=== PATIENT | male | born 1960 | race African-American/Black ===

== ENCOUNTER 2019-05-25 14:53 | Emergency (ER) | payer MEDICAID ==
[2019-05-25] MEDS ORDERED: SODIUM CHLORIDE 0.9% 1,000 ML IV ONE (15:15)
== END 2019-05-25 15:22 | disposition left against medical advice (07) ==
LOC: ER 14:53
DX: R06.02 Shortness of breath (principal); Z53.21 Procedure and treatment not carried out due to patient leaving prior to being seen by health care provider

== ENCOUNTER 2019-05-26 10:12 | Emergency (ER) | payer MEDICAID ==
[~2019-05-26] VITALS: Ht 167.6 cm; Wt 90.7 kg
[2019-05-26] MEDS ORDERED: cloNIDine HCL 0.1 MG TAB PO ONE (10:45)
[2019-05-26 10:54] LABS: Basophils # (auto) 0 uL; Basophils % (auto) 0.7 % (0.0-2.0); Eosinophils # (auto) 0.3 uL; Hemoglobin 12.7 g/dL (13.5-17.5); Lymphocytes # (auto) 1.3 uL; Mean Corpuscular Volume 79.8 fL (80.0-100.0); Monocytes # (auto) 0.7 uL
[2019-05-26 10:57] LABS: Eosinophils % (auto) 6.2 % (0.0-7.0); Hematocrit 38.6 % (41.0-53.0); Lymphocytes % (auto) 25.7 % (10.0-50.0); Mean Corpuscular Hemoglobin 26.3 pg (28.0-32.0); Monocytes % (auto) 13.2 % (0.0-12.0); Neutrophils # (auto) 2.7 uL; Neutrophils % (auto) 54.2 % (37.0-80.0); Platelet Count (auto) 264 10^3/uL (140-450); Red Blood Cells 4.84 10^6/uL (4.5-5.90); Red Cell Distribution Width 17.3 % (11.8-14.3)
[2019-05-26 11:04] LABS: Alanine Aminotransferase 192 U/L (16-61); Albumin 3.8 g/dL (3.4-5.0); Anion Gap 6 (5-15); Aspartate Aminotransferase 170 U/L (15-37); BUN/Creatinine Ratio 9.4; Blood Urea Nitrogen 12 mg/dL (7-18); Calcium 8.8 mg/dL (8.5-10.1); Carbon Dioxide 27 mmol/L (21-32); Chloride 103 mmol/L (98-107); GFR African American 74 mL/min; GFR Non-African American 62 mL/min; Glucose 217 mg/dL (74-106); Potassium 3.5 mmol/L (3.5-5.1); Sodium 136 mmol/L (136-145)
[2019-05-26 11:17] LABS: Alkaline Phosphatase 100 U/L (45-117); Bilirubin, Total 0.4 mg/dL (0.2-1.0); Total Protein 7.8 g/dL (6.4-8.2)
[2019-05-26] MEDS ORDERED: IOHEXOL 350 MG/ML 100ML IJ ONE (11:33)
[2019-05-26] MEDS ORDERED: LABETALOL HCL 5 MG/ML ML 20ML VIAL IV ONE (14:45)
[2019-05-26] MEDS ORDERED: amLODIPine BESYLATE 5 MG TAB PO ONE (15:30)
[2019-05-26] MEDS ORDERED: hydrALAZINE HCL 20 MG/ML VL IV ONE (16:30)
[2019-05-26 17:00] VITALS: BP 149/66
== END 2019-05-26 17:48 | disposition home or self-care (01) ==
LOC: ER 10:12
DX: I10 Essential (primary) hypertension (principal); R73.9 Hyperglycemia, unspecified; J44.9 Chronic obstructive pulmonary disease, unspecified; M54.2 Cervicalgia; Z98.61 Coronary angioplasty status
CPT/HCPCS: 36415; 70491; 71045; 71275; 80053; 83880; 84484; 85025; 93005; 94761; 96374; 96375; 99284; J0360; Q9967

== ENCOUNTER 2020-07-13 17:44 | Inpatient (IN) | payer MEDICAID ==
[~2020-07-13] VITALS: Ht 170.2 cm; Wt 84.5 kg
[2020-07-13] MEDS ORDERED: ACETAMINOPHEN 325 MG TAB PO ONE ×2 (18:07→18:15)
[2020-07-13 18:50] LABS: Hematocrit 42.1 % (41.0-53.0); Hemoglobin 13.9 g/dL (13.5-17.5); Mean Corpuscular Hemoglobin 27.3 pg (28.0-32.0); Mean Corpuscular Hgb Conc. 32.9 g/dL (32.0-36.0); Mean Corpuscular Volume 82.8 fL (80.0-100.0); Platelet Count (auto) 174 10^3/uL (140-450); Red Blood Cells 5.08 10^6/uL (4.5-5.90); Red Cell Distribution Width 12.7 % (11.8-14.3); White Blood Cell 3.3 10^3/uL (4.4-10.8)
[2020-07-13 19:06] LABS: Band Neutrophils % (manual) 0; Basophils % (manual) 0 (0.0-2.0); Blast Cells 0; Metamyelocytes % 0; Myelocytes % 0; Promyelocytes % 0; Reactive Lymphocytes 0
[2020-07-13 19:09] LABS: Albumin 3.1 g/dL (3.4-5.0); BUN/Creatinine Ratio 8.5; Calcium 8.3 mg/dL (8.5-10.1); Potassium 3.6 mmol/L (3.5-5.1)
[2020-07-13 19:14] LABS: Bilirubin, Total 0.3 mg/dL (0.2-1.0); Total Protein 7.5 g/dL (6.4-8.2)
[2020-07-13 19:19] LABS: INR 1.06 (0.9-1.15); Partial Thromboplastin Time 26.1 sec (23.0-31.2)
[2020-07-13] MEDS ORDERED: levoFLOXacin 750MG 150 ML IV ONE (19:45)
[2020-07-13 20:02] LABS: Eosinophils % (manual) 1 (0-7); Lymphocytes % (manual) 21 (10.0-50.0); Monocytes % (manual) 10 (0-12)
[2020-07-13] MEDS ORDERED: ONDANSETRON HCL 4 MG/2 ML VIAL IV ONE (20:45)
[2020-07-13] MEDS ORDERED: NITROGLYCERIN 0.4 MG SL TAB SL PRN (22:45)
[2020-07-13] MEDS ORDERED: MORPHINE SULF INJ 2 MG/ML SYRINGE 1ML IV PRN (22:45)
[2020-07-13] MEDS ORDERED: ONDANSETRON HCL 4 MG/2 ML VIAL IV PRN (22:45)
[2020-07-13] MEDS ORDERED: ALBUTEROL SULF 2.5 MG/0.5ML(0.5%) NEB SOLN NEB PRN (22:45)
[2020-07-13] MEDS ORDERED: ATOR1TAB PO (23:01)
[2020-07-13] MEDS ORDERED: LOS25T PO (23:01)
[2020-07-13] MEDS ORDERED: AMLO10TA13 PO (23:01)
[2020-07-14] VITALS (7 sets, daily range): BP systolic 112–139; BP diastolic 66–85
[2020-07-14] MEDS ORDERED: ACETAMINOPHEN 325 MG TAB PO PRN (00:45)
[2020-07-14] MEDS ORDERED: IOHEXOL 350 MG/ML 100ML IJ ONE (04:14)
[2020-07-14] MEDS ORDERED: CHOLECALCIFEROL (VITD3) 2,000 UNIT CAP PO SCH (10:00)
[2020-07-14] MEDS ORDERED: ZINC SULFATE 220mg CAP or TAB PO SCH (10:00)
[2020-07-14] MEDS ORDERED: amLODIPine BESYLATE 5 MG TAB PO SCH (10:00)
[2020-07-14] MEDS ORDERED: ENOXAPARIN SOD 40 MG/0.4 ML SYRINGE SC SCH (10:00)
[2020-07-14] MEDS ORDERED: AZITHROMYCIN 500MG/ 250ML 250 ML IV SCH (10:00)
[2020-07-14] MEDS ORDERED: ASCORBIC ACID 500 MG TAB PO SCH (10:00)
[2020-07-14] MEDS ORDERED: ATORVASTATIN 20 MG TAB PO SCH ×2 (10:00→22:00)
[2020-07-14] MEDS ORDERED: LOSARTAN POTASSIUM 25 MG TAB PO SCH (10:00)
[2020-07-14] MEDS: cefTRIAXone 1GM/50ML D5W 50 ML IV SCH (10:21)
[2020-07-14] MEDS ORDERED: ALBUAER3 IN (12:28)
[2020-07-14] MEDS ORDERED: LEVO500T21 PO (12:28)
[2020-07-15] MEDS: cefTRIAXone 1GM/50ML D5W 50 ML IV SCH (08:24)
[2020-07-15 08:48] VITALS: BP 125/69
== END 2020-07-15 09:49 | disposition home or self-care (01) | DRG 140 ==
LOC: ER 17:44 → EDBD 17:44 → TELE 17:45 → TELE-EAST 07-14 04:39 → TELE-CENTR 07-14 16:13
PROVIDERS: ADMIT Hospitalist; ATTEND Hospitalist
DX: J44.0 Chronic obstructive pulmonary disease with (acute) lower respiratory infection (principal); J44.1 Chronic obstructive pulmonary disease with (acute) exacerbation; J18.9 Pneumonia, unspecified organism; E66.9 Obesity, unspecified; F12.90 Cannabis use, unspecified, uncomplicated; I10 Essential (primary) hypertension; I25.10 Atherosclerotic heart disease of native coronary artery without angina pectoris; R21 Rash and other nonspecific skin eruption; Z20.828 Contact with and (suspected) exposure to other viral communicable diseases; E78.5 Hyperlipidemia, unspecified; F17.200 Nicotine dependence, unspecified, uncomplicated; Z95.1 Presence of aortocoronary bypass graft; Z95.5 Presence of coronary angioplasty implant and graft; Z71.6 Tobacco abuse counseling; Z79.899 Other long term (current) drug therapy; Z68.31 Body mass index [BMI] 31.0-31.9, adult
CPT/HCPCS: 36415; 71045; 71275; 80053; 83036; 83605; 83880; 84484; 85007; 85027; 85379; 85610; 85730; 87040; 87086; 87426; 93005; G0378; J0696; J1956

== ENCOUNTER 2020-08-03 20:55 | Inpatient (IN) | payer MEDICAID ==
[~2020-08-03] VITALS: Ht 167.6 cm; Wt 89.3 kg
[~2020-08-03 20:55] MED LIST: ALBUAER3 IN; AMLO10TA13 PO; ATOR1TAB PO; LEVO500T21 PO; LOS25T PO
[2020-08-03 23:27] LABS: Opiate Scree,Urine NEGATIVE (NEGATIVE)
[2020-08-03 23:28] LABS: Amphetamine Screen, Urine POSITIVE (NEGATIVE); Barbiturate Scree,Urine NEGATIVE (NEGATIVE); Phencyclidine Screen, Urine NEGATIVE (NEGATIVE)
[2020-08-03 23:29] LABS: Benzodiazephine Screen, Urine NEGATIVE (NEGATIVE); Cannabinoid Screen, Urine POSITIVE (NEGATIVE); Cocaine Screen, Urine NEGATIVE (NEGATIVE)
[2020-08-03 23:44] LABS: Basophils # (auto) 0 10 ^3/uL (0-0.2); Basophils % (auto) 0.5 % (0.0-2.0); Eosinophils # (auto) 0.2 10 ^3/uL (0-0.8); Eosinophils % (auto) 3.7 % (0.0-7.0); Hematocrit 44.5 % (41.0-53.0); Hemoglobin 14.4 g/dL (13.5-17.5); Lymphocytes # (auto) 1.5 10 ^3/uL (0.4-5.4); Lymphocytes % (auto) 26.6 % (10.0-50.0); Mean Corpuscular Hemoglobin 26.6 pg (28.0-32.0); Mean Corpuscular Hgb Conc. 32.3 g/dL (32.0-36.0); Mean Corpuscular Volume 82.3 fL (80.0-100.0); Monocytes # (auto) 0.7 10 ^3/uL (0-1.3); Monocytes % (auto) 12.5 % (0.0-12.0); Neutrophils # (auto) 3.2 10 ^3/uL (1.6-8.6); Neutrophils % (auto) 56.7 % (37.0-80.0); Nucleated Red Blood Cells % 0.1 %; Platelet Count (auto) 237 10^3/uL (140-450); Red Blood Cells 5.41 10^6/uL (4.5-5.90); Red Cell Distribution Width 13.5 % (11.8-14.3); White Blood Cell 5.6 10^3/uL (4.4-10.8)
[2020-08-03 23:59] LABS: INR 1.08 (0.9-1.15); Partial Thromboplastin Time 26.6 sec (23.0-31.2)
[2020-08-04 00:48] LABS: Anion Gap 7 (5-15); BUN/Creatinine Ratio 14.3; Blood Urea Nitrogen 19 mg/dL (7-18); Carbon Dioxide 27 mmol/L (21-32); Chloride 102 mmol/L (98-107); GFR African American 71 mL/min; GFR Non-African American 59 mL/min; Glucose 118 mg/dL (74-106); Potassium 3.2 mmol/L (3.5-5.1); Sodium 136 mmol/L (136-145)
[2020-08-04 00:49] LABS: Alanine Aminotransferase 93 U/L (16-61); Albumin 4.3 g/dL (3.4-5.0); Alkaline Phosphatase 81 U/L (45-117); Aspartate Aminotransferase 81 U/L (15-37); Bilirubin, Total 0.8 mg/dL (0.2-1.0); Calcium 9.9 mg/dL (8.5-10.1); Total Protein 8.9 g/dL (6.4-8.2)
[2020-08-04] MEDS ORDERED: POTASSIUM CHL 20 Meq TABLET PO ONE (01:15)
[2020-08-04] MEDS ORDERED: NITROGLYCERIN 0.4 MG SL TAB SL PRN (02:45)
[2020-08-04] MEDS ORDERED: ACETAMINOPHEN 325 MG TAB PO PRN (02:45)
[2020-08-04] MEDS ORDERED: ONDANSETRON HCL 4 MG/2 ML VIAL IV PRN (02:45)
[2020-08-04] MEDS ORDERED: MORPHINE SULF INJ 2 MG/ML SYRINGE 1ML IV PRN (02:45)
[2020-08-04 05:58] LABS: Basophils # (auto) 0 10 ^3/uL (0-0.2); Basophils % (auto) 0.5 % (0.0-2.0); Eosinophils # (auto) 0.2 10 ^3/uL (0-0.8); Eosinophils % (auto) 5.5 % (0.0-7.0); Hematocrit 44.6 % (41.0-53.0); Hemoglobin 14.5 g/dL (13.5-17.5); Lymphocytes # (auto) 1.1 10 ^3/uL (0.4-5.4); Lymphocytes % (auto) 25.4 % (10.0-50.0); Mean Corpuscular Hemoglobin 27.1 pg (28.0-32.0); Mean Corpuscular Hgb Conc. 32.5 g/dL (32.0-36.0); Mean Corpuscular Volume 83.5 fL (80.0-100.0); Monocytes # (auto) 0.6 10 ^3/uL (0-1.3); Monocytes % (auto) 14.2 % (0.0-12.0); Neutrophils # (auto) 2.4 10 ^3/uL (1.6-8.6); Neutrophils % (auto) 54.4 % (37.0-80.0); Nucleated Red Blood Cells % 0.1 %; Platelet Count (auto) 224 10^3/uL (140-450); Red Blood Cells 5.34 10^6/uL (4.5-5.90); Red Cell Distribution Width 13.6 % (11.8-14.3); White Blood Cell 4.5 10^3/uL (4.4-10.8)
[2020-08-04 06:33] LABS: Bilirubin, Total 0.8 mg/dL (0.2-1.0); Calcium 9.7 mg/dL (8.5-10.1); Magnesium 2.5 mg/dL (1.6-2.6); Phosphorus 3.6 mg/dL (2.5-4.90); Potassium 3.4 mmol/L (3.5-5.1); Total Protein 8.4 g/dL (6.4-8.2)
[2020-08-04 06:38] LABS: Cholesterol 138 mg/dL (< 200); LDL Cholesterol 73 mg/dL (< 100); Triglycerides 136 mg/dL (< 150)
[2020-08-04 06:42] LABS: HDL Cholesterol 39 mg/dL (40-59)
[2020-08-04] MEDS ORDERED: SODIUM CHLORIDE 0.9% 1,000 ML IV ONE (09:15)
[2020-08-04] MEDS: ATORVASTATIN 20 MG TAB PO SCH (09:47)
[2020-08-04] MEDS: ASPirin 81 mg TAB PO SCH (09:47)
[2020-08-04] MEDS ORDERED: ENOXAPARIN SOD 100 MG/1 ML SYRINGE SC SCH (10:00)
[2020-08-04] MEDS ORDERED: ASPI-231 PO (14:20)
[2020-08-04 14:30] LABS: BUN/Creatinine Ratio 15.4; Calcium 9.4 mg/dL (8.5-10.1); Potassium 3.9 mmol/L (3.5-5.1)
--- NOTE | 2020-08-04 16:42 | NUR ---
Telemetry admit from ER KATHIA CHATMAN Merlin admitted to Telemetry unit after SBAR received. Patient oriented to Piper Moise, primary RN, unit, room, bed, and unit policies regarding patient care and visiting hours. Patient now on continuous telemetry monitoring, tele box # [id number] and telemetry reading on arrival to unit is . Weighed by bedscale and encouraged to call if they need something. All questions and concerns addressed, patient verbalized understanding. Note:
--- NOTE | 2020-08-04 17:24 | NUR ---
THIS RN NOTIFIED THE PRIMARY RN, CLAIRE, THAT THE PATIENT NEEDS A MRSA NARES AND COVID-19 TEST PER PROTOCOL. RNCLAIRE AWARE AND VERBALIZED UNDERSTANDING.
--- NOTE | 2020-08-04 19:09 | NUR ---
ENDORSED MRSA SWAB AND COVID TO MAXILLOFACIAL PROSTHETICS DENTIST NEVER RECEIVED PATIENT STICKERS.
--- NOTE | 2020-08-05 07:30 | NUR ---
Opening Shift Note Assumed care of patient, resting comfortably. No S/S of distress/SOB or pain. Instructed on POC and to call for assist PRN, will continue to monitor for changes Q1hr and PRN. Bed in low and locked position, rails up x2, no-slip socks on.
[2020-08-05 09:00] VITALS: BP 134/82
[2020-08-05] MEDS: ATORVASTATIN 20 MG TAB PO SCH (09:40)
[2020-08-05] MEDS: ASPirin 81 mg TAB PO SCH (09:40)
--- NOTE | 2020-08-05 11:05 | NUR ---
CALL FROM DR Storm GEORGES TO OBTAIN CARDIAC CLEARANCE FROM DR RAMIREZ AND [facility] FOR HOMELESSNESS, UPDATED ON PATIENT CONDITION.
--- NOTE | 2020-08-05 11:28 | NUR ---
CALL BACK FROM [facility], SS OFFERED PATIENT [facility] IN [place] AND HE REFUSED, STATED THAT HE HAS MONEY BUT THAT THE PLACE WE ARE OFFERING "IS NOT HIS TYPE OF LIVING", THAT HE IS "NOT ON PROBATION" AND "DOESNT WANT TO BE TREATED" LIKE HE IS. hE ALSO STATED HE IS HOPING TO FIND HIS OWN APARTMENT AND PAY HIS OWN WAY. PER [facility], OFFERED PATIENT [facility] IN [place] PH:[phone]. WHILE IN ROOM PATIENT CALLED AND SPOKE TO BUSINESS SERVICES INTERN AT LOCATION AND LATER HE DENIED THEIR SERVICES WELL. CALL BACK TO [facility], WE ARE ABLE TO OFFER TAXI VOUCHER IF PATIENT HAS ANY FAMILY OR FRIENDS IN THE AREA, HE IS STILL MAKING PHONE CALLS WHEN LEAVING THE ROOM.
--- NOTE | 2020-08-05 11:55 | NUR ---
DR Storm GEORGES AT BEDSIDE ABLE TO SPEAK TO PATIENT ABOUT HIS CONDITION, RESULTS OF TESTS AND THAT HE NEEDS TO CONTINUE TO FOLLOW UP WITH HIS PROVIDER FOR HIS ANGINA. CLEARED FOR DISCHARGE PER DR RAMIREZ AFTER CALL BACK. PATIENT EATING LUNCH, AWAITING A TAXI VOUCHER.
[2020-08-05 12:38] VITALS: BP 135/80
[2020-08-05 13:00] VITALS: BP 135/80
--- NOTE | 2020-08-05 13:10 | NUR ---
REFUSED HOMELESSNESS RESOURCES PATIENT CONTINUE TO REFUSE HOMELESS SERVICES [facility]. CALL TO DIETARY TO MAKE PATIENT A TO GO MEAL BAG AND TAXI CALLED FOR TRANSPORTATION TO PATIENTS LOCATION OF CHOICE IN [place].
--- NOTE | 2020-08-05 13:40 | NUR ---
DISCHARGED Discharge instructions given as ordered. Encourage to follow up with PMD as instructed. All questions and concerns addressed. Patient verbalized understanding. Medication reconciliation form completed and copy given to patient. IV removed with catheter intact, pressure dressing applied. Telemetry unit returned to ICU. Patient taken to vehicle via wheelchair with all personal belongings to taxi, accompanied by staff. No distress noted at time of departure.
--- NOTE | 2020-08-06 12:00 | NUR ---
primary montessori teacher 08/05/2020 While primary montessori teacher I received a page from Liset MELCHOR stating patient is homeless. I have offered patient the [facility] homeless half-way and a sober living in [place]. Patient has refused all resources and will find his own placement. Addendum: 08/06/20 at 1204 by Svitlana MAN Amended: Links added.
== END 2020-08-05 13:40 | disposition home or self-care (01) | DRG 198 ==
LOC: ER 20:55 → EDBD 20:55 → EDUNIT# 20:55 → TELE 20:56 → TELE-WESTW 08-04 16:42
PROVIDERS: ADMIT Internal Medicine; ATTEND Internal Medicine
DX: R07.89 Other chest pain (principal); I25.119 Atherosclerotic heart disease of native coronary artery with unspecified angina pectoris; E87.6 Hypokalemia; E78.5 Hyperlipidemia, unspecified; F15.90 Other stimulant use, unspecified, uncomplicated; Z20.828 Contact with and (suspected) exposure to other viral communicable diseases; I12.9 Hypertensive chronic kidney disease with stage 1 through stage 4 chronic kidney disease, or unspecified chronic kidney disease; E86.0 Dehydration; N18.2 Chronic kidney disease, stage 2 (mild); J44.9 Chronic obstructive pulmonary disease, unspecified; Z59.0 Homelessness; Z95.2 Presence of prosthetic heart valve; Z95.5 Presence of coronary angioplasty implant and graft
CPT/HCPCS: 36415; 71045; 80048; 80053; 80061; 80307; 83735; 83880; 84100; 84484; 85025; 85610; 85730; 87081; 87426; 93306; 96360; 96372; G0378